=== PATIENT | male | born 1955 | race Caucasian/White ===

== ENCOUNTER 2020-01-30 15:07 | Emergency (ER) | payer OTHER, SELFPAY ==
--- NOTE | 2020-01-30 15:13 | ED.UPPEXIN ---
HPI - Extremity Injury (Upper) General Chief Complaint: Extremity Injury, Upper Stated Complaint: elbow pain Time Seen by Provider: 01/30/20 15:20 Source: patient and RN notes reviewed Mode of arrival: ambulatory Limitations: no limitations History of Present Illness HPI narrative: 64-year-old male presents with concern for right elbow pain. Reports he has been doing a lot of yard work for the last several weeks, reports he has been using manual hedge trimmers yesterday and today. 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 Denies any fall, trauma. Denies any numbness in his arm or digits. MD complaint: injury to: right and elbow Related Data Home Medications Medication Instructions Recorded Confirmed ascorbic acid (vitamin C) 1,000 mg 1 gm PO DAILY 07/01/19 tablet aspirin 81 mg tablet,delayed 81 mg PO DAILY 07/01/19 release atorvastatin 10 mg tablet 10 mg PO DAILY 07/01/19 calcium polycarbophil 625 mg tablet 1,250 mg PO DAILY 07/01/19 cetirizine 10 mg capsule 10 mg PO DAILY 07/01/19 clopidogrel 75 mg tablet 75 mg PO DAILY 07/01/19 docosahexaenoic acid 200 mg capsule mg PO 07/01/19 hydrochlorothiazide 25 mg tablet 25 mg PO DAILY 07/01/19 insulin glargine 100 unit/mL (3 25 unit SUB-Q DAILY 07/01/19 mL) subcutaneous pen losartan 100 mg tablet 100 mg PO DAILY 07/01/19 soldrhse-edgt-qsxyo acid 400 tablet PO 07/01/19 mcg-lycopene 300 mcg-ginkgo 120 mg tablet sitagliptin 100 mg tablet 100 mg PO DAILY 07/01/19 amlodipine 01/30/20 Allergies Allergy/AdvReac Type Severity Reaction Status Date / Time No Known Allergies Allergy Verified 07/01/19 15:19 Review of Systems Review of Systems: Narrative: CONSTITUTIONAL: Denies malaise, chills, sweats, or fever. CARDIOVASCULAR: Denies chest pain, palpitations, or edema. RESPIRATORY: Denies dyspnea. SKIN: Denies bruising, redness, swelling MUSCULOSKELETAL: Reports left elbow pain, decreased appellate court judge strength NEUROLOGIC: Denies numbness, weaknessn. All systems reviewed & are unremarkable except as noted in HPI and below PMFSH Social History Social History (Updated 07/01/19 @ 15:25 by Jennifer Carpio [facility] Smoking status: Former smoker Tobacco type: cigarettes Alcohol intake: never Substance use: never Comments At time of signature, agree with nursing past medical, surgical, social and family history. There is no relevant family history pertinent to the presenting complaint Exam Narrative: Exam Narrative: GENERAL: Well-appearing, well-nourished, and in no acute distress. HEAD: Normocephalic, atraumatic. EYES: PERRLA, conjunctivae clear NECK: Supple. CHEST: Speaks in full sentences. No respiratory distress. HEART: Regular rate and rhythm. Normal and equal peripheral pulses. EXTREMITIES: Right elbow, arm, digits have normal strength and sensation, no edema, normal range of motion. 5/5 strength with elbow and digit flexion and extension. Normal sensation with sensitivity to light touch and pain. Left lateral elbow tenderness on palpation. No open wounds, no skin tenting, no devitalized tissue or atrophy, no trophic changes, no ecchymosis, no obvious deformity, alignment normal, no point tenderness, nearby joints and structures intact. Distal pulses palpable and equal bilaterally, skin warm, dry, pink. Capillary refill less than 3 seconds. SKIN: Warm, dry, no rash. NEURO: Alert and oriented x3. PSYCH: Normal mood and affect Course Course Emergency Course: Patient is aware of diagnosis, understands and agrees to treatment plan. Anticipatory guidance given. Patient agrees to follow-up as directed and is aware of reasons to seek care at the emergency department. Portions of this record may have been created with voice recognition software Vital Signs Vital signs: Vital Signs Temperature 98.9 F 01/30/20 15:25 Pulse Rate 92 01/30/20 15:25 Respiratory Rate 16 0
[2020-01-30 15:25] VITALS: BP 153/77; PULSE 92; RESP 16; TEMP 37.2; O2SAT 98
== END 2020-01-30 15:38 | disposition home or self-care (01) ==
PROVIDERS: Emergency Provider Nurse Practitioner; PCP Nurse Practitioner Family
DX: M77.11 Lateral epicondylitis, right elbow (principal); I10 Essential (primary) hypertension; E11.9 Type 2 diabetes mellitus without complications; E78.00 Pure hypercholesterolemia, unspecified; Z79.4 Long term (current) use of insulin; Z87.891 Personal history of nicotine dependence
CPT/HCPCS: 99211; G0463

== ENCOUNTER → 2020-10-27 06:58 | Outpatient (CLI) | payer MEDICARE, OTHER, SELFPAY ==
--- NOTE | ~2020-10-27 | XR_ITS ---
EXAMINATION: XR foot RT min 3V, XR toe 2nd RT min 2V EXAM DATE: 10/27/2020 07:19 INDICATION: Pain of toe of right foot . No known injury. TECHNIQUE: Right foot dorsoplantar, lateral and oblique projections obtained and reviewed. Frontal, oblique, lateral projections right 2nd toe. There are no prior studies for comparison. FINDINGS: Right metatarsal bones unremarkable. 2nd toe is unremarkable. There are no bony erosions i dentified. There are no acute fractures or dislocations identified. There is no subcutaneous gas. Mild scattered arterial sclerosis. There are no radiopaque foreign bodies. Small inferior calcanea l spur. IMPRESSION: 1. Right foot, 2nd toe exam without acute osseous findings. 2. Small calcaneal spur. Reviewed, dictated and finalized at location B. ARCH AIDE IMPRESSION: 1. Right foot, 2nd toe exam without acute osseous findings. 2. Small calcaneal spur.
== END ==
PROVIDERS: PCP Nurse Practitioner Family; Visit Provider Nurse Practitioner Family
DX: M79.674 Pain in right toe(s) (principal); M77.31 Calcaneal spur, right foot
CPT/HCPCS: 73630; 73660

== ENCOUNTER 2024-09-22 14:32 | Outpatient (CLI) | payer MEDICARE, OTHER, SELFPAY ==
--- NOTE | ~2024-09-22 | XR_ITS ---
Right Hand Technique: PA, oblique, and lateral views were obtained. Clinical History: Pain Findings: No acute fracture or dislocation is seen. Osseous alignment is anatomic. There are mild deg enerative changes throughout the DIP joints of the fingers. Soft tissues are unremarkable. Impression: Degenerative changes, as above. Reviewed, dictated and finalized at location . OLOGY SUPERVISOR Impression: Degenerative changes, as above.
== END 2024-09-22 14:33 | disposition home or self-care (01) ==
LOC: MICIMG 14:35
PROVIDERS: PCP Nurse Practitioner Family; Visit Provider Nurse Practitioner Family
DX: M19.041 Primary osteoarthritis, right hand (principal)
CPT/HCPCS: 73130